=== PATIENT | female | born 1990 | race Caucasian/White ===

== ENCOUNTER 2017-06-27 09:22 | Emergency (ER) | payer SELFPAY ==
[2017-06-27 09:44] LABS: Bilirubin Negative (Negative); Blood, Urine Trace (Negative); Clarity Slightly Cloudy (Clear); Glucose, Urine (Dipstick) Negative (Negative); Leukocyte Small (Negative); Nitrite Positive (Negative); Protein, Urine (Dipstick) 30 mg/dL (Neg-Trace)
[2017-06-27 09:45] LABS: Pregnancy Test - Urine (BHCG) Negative (Negative); Pregu Control Background? CLEAR/WHITE (CLR/WHITE); Pregu Control Bar Appear? YES (CONTROL BAR); Specific Gravity 1.024 (1.002-1.036)
[2017-06-27 09:46] LABS: Specific Gravity, Urine 1.024 (1.002-1.036)
[2017-06-27 09:55] LABS: Bacteria/HPF 3+ HPF (None Seen); RBC/HPF 0-3 HPF (0-3); Squamous Epithelial 0-3 HPF (0-3)
[2017-06-27] MEDS ORDERED: Ketorolac Tromethamine 30 MG/ML VIAL ONE (10:11)
[2017-06-27] MEDS ORDERED: Phenazopyridine HCl 97.5 MG TABLET ONE (10:11)
[2017-06-27] MEDS ORDERED: cefTRIAXone\\ROCEPHIN 1 GM VIAL ONE (10:24)
[2017-06-27 10:25] LABS: ALT (SGPT) 13 U/L (8-55); AST (SGOT) 7 U/L (5-34); Albumin 4.2 g/dL (3.5-5.0); Alkaline Phosphatase 51 U/L (40-150); Anion Gap 14 mmol/L (10-20); BUN (Urea Nitrogen) 10 mg/dL (7.0-18.7); Bilirubin, Total 0.3 mg/dL (0.2-1.2); Calc. Creatinine Clearance 0 mL/min (70-130); Calcium 9.2 mg/dL (7.8-10.44); Carbon Dioxide 23 mmol/L (22-29); Chloride 105 mmol/L (98-107); Estimated GFR-MDRD Greater than 90; Globulin 3.1 g/dL (2.4-3.5); Glucose 84 mg/dL (70-105); Potassium 3.8 mmol/L (3.5-5.1); Protein, Total 7.3 g/dL (6.0-8.3); Sodium 138 mmol/L (136-145)
[2017-06-27] MEDS ORDERED: Lidocaine 1% PF 5 ML VIAL ONE (10:25)
[2017-06-27 10:27] LABS: #Basophils 0.1 thou/uL (0.0-0.2); #Eosinphils 0.1 thou/uL (0.0-0.7); #Lymphocytes 0.8 thou/uL (1.20-3.40); #Monocytes 0.5 thou/uL (0.11-0.59); #Neutrophils 5.5 thou/uL (1.40-6.50); %Basophils 1.1 % (0.0-1.0); %Eosinophils 1.7 % (0.0-10.0); %Lymphocytes 11.4 % (21.0-51.0); %Monocytes 7.5 % (0.0-10.0); %Neutrophils 78.3 % (42.0-75.0); Hemoglobin 13.3 g/dL (12.0-16.0); Mean Corpuscular HGB CONC 34.9 g/dL (32.0-36.0); Mean Corpuscular Hemoglobin 29.6 pg (27.0-31.0); Mean Corpuscular Volume 84.7 fl (81.0-99.0); Mean Platelet Volume 6.3 fL (7.4-10.4); Platelet Count 261 thou/uL (130-400); Red Blood Cell (RBC) Count 4.49 mill/uL (4.20-5.40); White Blood Cell (WBC) Count 7.1 thou/uL (4.8-10.8)
== END 2017-06-27 10:55 | disposition home or self-care (01) ==
LOC: SCSER 09:22
DX: N39.0 Urinary tract infection, site not specified (principal); F41.9 Anxiety disorder, unspecified; F31.9 Bipolar disorder, unspecified; F17.210 Nicotine dependence, cigarettes, uncomplicated; Z79.899 Other long term (current) drug therapy
CPT/HCPCS: 80053; 81003; 81015; 81025; 85025; 87077; 87086; 87186; 96372; J0696; J1885; J2001

== ENCOUNTER 2017-06-28 11:56 | Emergency (ER) | payer SELFPAY ==
[2017-06-28 12:34] LABS: Bilirubin Negative (Negative); Blood, Urine Large (Negative); Clarity TURBID (Clear); Glucose, Urine (Dipstick) Negative (Negative); Leukocyte Moderate (Negative); Nitrite Negative (Negative); Protein, Urine (Dipstick) 100 mg/dL (Neg-Trace); Specific Gravity, Urine 1.031 (1.002-1.036)
[2017-06-28 12:37] LABS: Bacteria/HPF None Seen HPF (None Seen)
[2017-06-28 12:38] LABS: Pregnancy Test - Urine (BHCG) Negative (Negative); Pregu Control Background? CLEAR/WHITE (CLR/WHITE); Pregu Control Bar Appear? YES (CONTROL BAR); Specific Gravity 1.031 (1.002-1.036); Yeast-AUWi Flag 184.1 (0-25.0)
[2017-06-28 12:54] LABS: Hyaline Casts/LPF 0-3 HYALINE CAST LPF (0-3 Hyaline); RBC/HPF GREATER THAN 50-TNTC HPF (0-3); Yeast-All Forms None Seen HPF (None Seen)
[2017-06-28] MEDS ORDERED: cefTRIAXone\\ROCEPHIN 2 GM VIAL ONE (12:56)
[2017-06-28 13:04] LABS: #Eosinphils 0.1 thou/uL (0.0-0.7); #Lymphocytes 1.4 thou/uL (1.20-3.40); #Monocytes 0.7 thou/uL (0.11-0.59); #Neutrophils 5.3 thou/uL (1.40-6.50); %Basophils 0.2 % (0.0-1.0); %Eosinophils 1.8 % (0.0-10.0); %Monocytes 9.5 % (0.0-10.0); %Neutrophils 69.5 % (42.0-75.0); Hemoglobin 12.8 g/dL (12.0-16.0); Mean Corpuscular HGB CONC 33.4 g/dL (32.0-36.0); Mean Corpuscular Hemoglobin 29.4 pg (27.0-31.0); Mean Corpuscular Volume 88.1 fl (81.0-99.0); Mean Platelet Volume 7.6 fL (7.4-10.4); Platelet Count 234 thou/uL (130-400); RBC Distribution Width 12.6 % (11.5-14.5); Red Blood Cell (RBC) Count 4.35 mill/uL (4.20-5.40); White Blood Cell (WBC) Count 7.6 thou/uL (4.8-10.8)
[2017-06-28 13:33] LABS: ALT (SGPT) 11 U/L (8-55); AST (SGOT) 14 U/L (5-34); Albumin 3.7 g/dL (3.5-5.0); Alkaline Phosphatase 53 U/L (40-150); Anion Gap 13 mmol/L (10-20); BUN (Urea Nitrogen) 10 mg/dL (7.0-18.7); Bilirubin, Total 0.2 mg/dL (0.2-1.2); Calc. Creatinine Clearance 0 mL/min (70-130); Carbon Dioxide 22 mmol/L (22-29); Chloride 105 mmol/L (98-107); Estimated GFR-MDRD Greater than 90; Globulin 3.5 g/dL (2.4-3.5); Glucose 106 mg/dL (70-105); Potassium 4.6 mmol/L (3.5-5.1); Protein, Total 7.2 g/dL (6.0-8.3); Sodium 135 mmol/L (136-145)
[2017-06-28] MEDS ORDERED: Ketorolac Tromethamine 30 MG/ML VIAL ONE (14:19)
== END 2017-06-28 15:03 | disposition home or self-care (01) ==
LOC: ERS 11:56
DX: N12 Tubulo-interstitial nephritis, not specified as acute or chronic (principal); F41.9 Anxiety disorder, unspecified; F31.9 Bipolar disorder, unspecified; F17.210 Nicotine dependence, cigarettes, uncomplicated; Z79.899 Other long term (current) drug therapy
CPT/HCPCS: 36415; 80053; 81003; 81015; 81025; 85025; 87081; 87430; 96365; 96375; J0696; J1885

== ENCOUNTER 2017-06-30 18:51 | Emergency (ER) | payer SELFPAY ==
[~2017-06-30 18:51] MED LIST: ISOVUE-370 76%-LOCM 1 ML ONE
[2017-06-30 19:36] LABS: #Eosinphils 0.1 thou/uL (0.0-0.7); #Lymphocytes 1.7 thou/uL (1.20-3.40); #Monocytes 0.9 thou/uL (0.11-0.59); #Neutrophils 6.3 thou/uL (1.40-6.50); %Eosinophils 1.3 % (0.0-10.0); %Lymphocytes 18.5 % (21.0-51.0); %Monocytes 9.8 % (0.0-10.0); %Neutrophils 70.5 % (42.0-75.0); Hemoglobin 13.2 g/dL (12.0-16.0); Mean Corpuscular HGB CONC 33.9 g/dL (32.0-36.0); Mean Corpuscular Hemoglobin 29.5 pg (27.0-31.0); Mean Corpuscular Volume 86.9 fl (81.0-99.0); Mean Platelet Volume 8.3 fL (7.4-10.4); Platelet Count 193 thou/uL (130-400); RBC Distribution Width 12.6 % (11.5-14.5); Red Blood Cell (RBC) Count 4.48 mill/uL (4.20-5.40); White Blood Cell (WBC) Count 8.9 thou/uL (4.8-10.8)
[2017-06-30 19:55] LABS: ALT (SGPT) 15 U/L (8-55); AST (SGOT) 16 U/L (5-34); Albumin 3.6 g/dL (3.5-5.0); Alkaline Phosphatase 60 U/L (40-150); Anion Gap 13 mmol/L (10-20); BUN (Urea Nitrogen) 10 mg/dL (7.0-18.7); Bilirubin, Total 0.2 mg/dL (0.2-1.2); Calc. Creatinine Clearance 0 mL/min (70-130); Calcium 9.4 mg/dL (7.8-10.44); Carbon Dioxide 24 mmol/L (22-29); Chloride 104 mmol/L (98-107); Estimated GFR-MDRD Greater than 90; Glucose 95 mg/dL (70-105); Potassium 4.5 mmol/L (3.5-5.1); Protein, Total 7.6 g/dL (6.0-8.3); Sodium 136 mmol/L (136-145)
[2017-06-30] MEDS ORDERED: diphenhydrAMINE 50 MG/ML VIAL ONE (20:29)
[2017-06-30] MEDS ORDERED: Famotidine 20 MG TAB ONE (20:29)
[2017-06-30] MEDS ORDERED: Ketorolac Tromethamine 30 MG/ML VIAL ONE (20:29)
[2017-06-30] MEDS ORDERED: methylPREDNISolone Sod Succ/PF 125 MG/2 ML VIAL ONE (20:29)
[2017-06-30] MEDS ORDERED: Water For Inject, Bacteriostat 30 ML ONE (20:29)
[2017-06-30 21:39] LABS: Bilirubin Negative (Negative); Blood, Urine Large (Negative); Clarity TURBID (Clear); Glucose, Urine (Dipstick) Negative (Negative); Leukocyte Moderate (Negative); Nitrite Negative (Negative); Protein, Urine (Dipstick) 30 mg/dL (Neg-Trace); Specific Gravity, Urine 1.023 (1.002-1.036); pH, Urine 7.5 (5.0-9.0)
[2017-06-30 21:41] LABS: Bacteria/HPF Rare-Few HPF (None Seen); Hyaline Casts/LPF 4-6 HYALINE CAST LPF (0-3 Hyaline); Pathc Cast-AUWi Flag 1.01 (0-2.49); RBC/HPF GREATER THAN 50-TNTC HPF (0-3)
[2017-06-30 21:54] LABS: MONO NEGATIVE CONTROL ZONE White (Negative) (White); MONO POSITIVE CONTROL Pink Line (Positive) (PINK/RED); Mononucleosis NEGATIVE (NEGATIVE)
--- NOTE | 2017-06-30 22:21 | CT ---
CT OF THE SOFT TISSUES OF THE NECK WITH AND WITHOUT IV CONTRAST: 06/30/17 INDICATION: Neck pain. COMPARISON: None. FINDINGS: There is a striated appearance of the bilateral palatine tonsils consistent with tonsillitis. Parapha ryngeal fat appears maintained. There are enlarged parapharyngeal lymph nodes with largest on the lef t measuring 1.6 cm. There are multiple enlarged level IIA and level III lymph nodes within both aspec ts of the neck which are likely reactive in nature. The submandibular and parotid glands appear withi n normal limits. The thyroid gland appears within normal limits. There is some mild narrowing of the oropharyngeal airway at the level of the enlarged tonsils. The visualized paranasal sinuses are clear . The intracranial contents appear within normal limits. The visualized upper mediastinum appears wit hin normal limits. The lung apices are clear. No acute osseous abnormalities evident. No drainable fl uid collection is noted. IMPRESSION: Findings of palatine tonsillitis with reactive lymphadenopathy of the upper neck. No definite drainab le fluid collection is grossly evident. POS: H
[2017-06-30] MEDS ORDERED: Morphine 4 MG/ML VIAL ONE (23:24)
--- NOTE | 2017-07-01 00:04 | CT ---
CT OF THE ABDOMEN AND PELVIS WITHOUT CONTRAST: 06/30/17 INDICATION: History of sore throat, shortness of breath and left lower quadrant abdominal pain. FINDINGS: There is contrast within the renal collecting systems from the patient's CT soft tissues of the neck with IV contrast performed early. No obstruction is evident. There is mild amount of retained stool within the colon. Normal appendix seen in the right lower quad rant of the abdomen. Spleen, pancreas, and adrenal glands appear within normal limits on this noncont rast exam. No free fluid is evident. The visualized rectum and perirectal soft tissues are unremarkab le. No definite acute osseous abnormality is evident. IMPRESSION: 1. Contrast within the renal collecting systems from the patient's recent CT of soft tissues of the neck. This limits evaluation for renal calculi. No definite obstruction is evident. 2. Normal appendix. 3. Mild amount of retained stool within the colon. POS: [facility]
== END 2017-07-01 00:50 | disposition home or self-care (01) ==
LOC: ERS 18:51
DX: J02.9 Acute pharyngitis, unspecified (principal); F41.9 Anxiety disorder, unspecified; F31.9 Bipolar disorder, unspecified; F17.210 Nicotine dependence, cigarettes, uncomplicated
CPT/HCPCS: 36415; 70492; 74176; 80053; 81003; 81015; 83605; 85025; 86308; 87081; 87430; 96361; 96374; 96375; J1200; J1885; J2270; J2930

== ENCOUNTER 2017-07-04 14:34 | Observation (INO) | payer SELFPAY ==
[2017-07-04 17:27] LABS: Hemoglobin 14.9 g/dL (12.0-16.0); Mean Corpuscular HGB CONC 33.6 g/dL (32.0-36.0); Mean Corpuscular Hemoglobin 28.9 pg (27.0-31.0); Mean Platelet Volume 6.4 fL (7.4-10.4); Platelet Count 264 thou/uL (130-400); RBC Distribution Width 12.5 % (11.5-14.5); Red Blood Cell (RBC) Count 5.14 mill/uL (4.20-5.40); White Blood Cell (WBC) Count 10.3 thou/uL (4.8-10.8)
[2017-07-04 17:46] LABS: Band 4 % (5-11); Eosinophils 1 % (0-10); Lymphocytes 14 % (21-51); MDiff Complete? YES; Monocytes 7 % (0-10); Neutrophil 74 % (42-75); PLT Morphology Comment Appears Adequate
[2017-07-04 17:50] LABS: ALT (SGPT) 15 U/L (8-55); AST (SGOT) 9 U/L (5-34); Albumin 3.8 g/dL (3.5-5.0); Alkaline Phosphatase 69 U/L (40-150); Anion Gap 11 mmol/L (10-20); BUN (Urea Nitrogen) 16 mg/dL (7.0-18.7); Bilirubin, Total 0.3 mg/dL (0.2-1.2); Calc. Creatinine Clearance 0 mL/min (70-130); Calcium 9.7 mg/dL (7.8-10.44); Carbon Dioxide 28 mmol/L (22-29); Chloride 98 mmol/L (98-107); Estimated GFR-MDRD Greater than 90; Glucose 91 mg/dL (70-105); Lipase 15 U/L (8-78); Potassium 3.9 mmol/L (3.5-5.1); Protein, Total 7.8 g/dL (6.0-8.3); Sodium 133 mmol/L (136-145)
[2017-07-04] MEDS ORDERED: Lidocaine Viscous Sol 2% 15 ml UD Cup ONE (18:49)
[2017-07-04] MEDS ORDERED: Dexamethasone 4 mg/ml Vial ONE (18:49)
[2017-07-04] MEDS ORDERED: cefTRIAXone\\ROCEPHIN 2 GM VIAL ONE (19:59)
--- NOTE | 2017-07-04 20:12 | PDOC.FPRHP ---
- History of Present Illness Chief Complaint: throat pain, chills, dysphagia, odynophagia, ear pain History of Present Illness: 27 yo F presents for cc of throat swelling and pain for the last 3 days that has progressively worsened. She reports the symptom onset was gradual and has some associated odynophagia and dysphagia, but denies any sob or wheezing. She does report associated subjective fever and chills, although home temperature has been normal. She was recently seen in the ER for similar symptoms in addition to UTI type symptoms. At that time she had a neck ct performed that showed b/l tonsillitis and reactive adenopathy w/o concern for peritonsillar abscess. She has been to the ER approx 4 times in the past month and has been and is currently being treated for a UTI. She is currently taking keflex. In the ER there was concern for possible gc/c of oropharynx and swabs were performed in addition to vp3. She was given rocephin and azithromycin empirically in ED. She does report IV drug use with methamphetamine and her most recent use was approx 1 month ago. She is sexually active with her only . She reports a single episode of vaginal bleeding that she had initially associated with her UTI. She denies vaginal discharge, dyspareunia, vaginal bleeding (currently), and denies lesions or sores around vulva. ED Course: Rocephin, decadron and viscous lidocaine po - Allergies/Adverse Reactions Allergies Allergy/AdvReac Type Severity Reaction Status Date / Time morphine Allergy Verified 07/05/17 01:30 shellfish derived Allergy Verified 07/05/17 01:30 Sulfa (Sulfonamide Allergy Verified 07/05/17 01:30 Antibiotics) - Home Medications Medication Instructions Recorded Confirmed Type traMADol HCl [Tramadol HCl] 50 mg PO Q6HR 07/05/17 07/05/17 History Clindamycin [Cleocin] 300 mg PO Q6HR #28 cap 07/06/17 Rx Ibuprofen [Motrin] 800 mg PO Q8H PRN #30 tab 07/06/17 Rx Phenol [Chloraseptic [place]] 0 ml PO PRN PRN bot 07/06/17 Rx - History PMHx: Recurrent UTI, IV drug use PSHx: None FHx: NA Social: 1/2ppd smoking history, methamphetamine IV and inh drug abuse, non- drinker - Review of Systems General: reports: fever/chills. denies: weight/appetite/sleep changes, fatigue Eyes: denies: eye pain ENT: reports: other (sore throat, dysphagia, odynophagia, b/l ear pain, tender cervical adenopathy). denies: nasal congestion, rhinorrhea Respiratory: denies: cough, congestion, shortness of breath Cardiovascular: denies: chest pain, palpitation, edema Gastrointestinal: denies: nausea, vomiting, diarrhea, constipation, abdominal pain Genitourinary: denies: incontinence, dysuria, polyuria, discharge Skin: denies: rashes, lesions Musculoskeletal: reports: arthritis/arthralgias. denies: pain, swelling Neurological: denies: numbness, weakness - Vital signs BP: 117/83 HR: 115 RR: 16 Tmax: 98.4 Pox: 96% on RA Wt: 90Kg - Physical Exam Constitutional: awake, alert and oriented, other (mildly distressed) HEENT: normocephalic and atraumatic, PERRLA, conjunctiva clear, grossly normal vision, grossly normal hearing, MMM, other (Lt TM erythematous and cloudy, Rt TM erythematous w/ evidence of tympanosclerosis, Tonsillar enlargement and purulent exudates b/l with tender cervical adenopathy) Neck: supple, trachea midline, no JVD, no thyromegaly, other (cervical adenopathy b/l) Chest: no-tender to palpation Heart: RRR, normal S1/S2, no murmurs/rubs/gallops, pulses present, no edema Lungs: CTAB, no respiratory distress, good air movement, no rales/rhonchi, no wheezing, no retractions Abdomen: soft, non-tender, bowel sounds present, no masses/distention Musculoskeletal: normal structure, normal tone, ROM grossly normal Neurological: no focal deficit Skin: no rash/lesions, capillary refill <2 seconds Heme/Lymphatic: no unusual bruising or bleeding, no petechia FMR H&P: Results - Labs Result Diagrams: 07/06/17 03:21 07/06/17 03:21 Lab results: WBC 10.3 thou/uL (4.8-10.8) 07/04/17 17:18 Hgb 14.9 g/dL (12.0-16.0) 07/04/17 17:18 Hct 44.2 % (36.0-47.0) 07/04/17 17:18 MCV 86.0 fl (81.0-99.0) 07/04/17 17:18 Plt Count 264 thou/uL (130-400) 07/04/17 17:18 Band Neuts % (Manual) 4 % (5-11) L 07/04/17 17:18 Sodium 133 mmol/L (136-145) L 07/04/17 17:18 Potassium 3.9 mmol/L (3.5-5.1) 07/04/17 17:18 Chloride 98 mmol/L (98-107) 07/04/17 17:18 Carbon Dioxide 28 mmol/L (22-29) 07/04/17 17:18 BUN 16 mg/dL (7.0-18.7) 07/04/17 17:18 Creatinine 0.64 mg/dL (0.6-1.1) 07/04/17 17:18 Glucose 91 mg/dL (70-105) 07/04/17 17:18 Calcium 9.7 mg/dL (7.8-10.44) 07/04/17 17:18 Total Bilirubin 0.3 mg/dL (0.2-1.2) 07/04/17 17:18 AST 9 U/L (5-34) 07/04/17 17:18 ALT 15 U/L (8-55) 07/04/17 17:18 Alkaline Phosphatase 69 U/L (40-150) 07/04/17 17:18 Serum Total Protein 7.8 g/dL (6.0-8.3) 07/04/17 17:18 Albumin 3.8 g/dL (3.5-5.0) 07/04/17 17:18 Lipase 15 U/L (8-78) 07/04/17 17:18 FMR H&P: A/P - Problem List (1) Tonsillitis with exudate Status: Acute Code(s): J03.90 - ACUTE TONSILLITIS, UNSPECIFIED (2) Bacterial vaginosis Status: Acute Code(s): N76.0 - ACUTE VAGINITIS; B96.89 - OTH BACTERIAL AGENTS THE CAUSE OF DISEASES CLASSD ELSWHR (3) Trichomoniasis Status: Acute (4) Drug abuse Status: Acute Code(s): F19.10 - OTHER PSYCHOACTIVE SUBSTANCE ABUSE, UNCOMPLICATED (5) Tobacco abuse Status: Acute Code(s): Z72.0 - TOBACCO USE - Plan 1) Tonsillitis: given worsening of s/s will treat empirically with iv clindamycin and culture throat for concern of early peritonsillar abscess. Recent rapid strep tests and cultures have been negative thus far. Currently pt shows no s/s of peritonsillar abscess or respiratory compromise. She was given decadron in ED in addition to rocephin and azithromyci. GC/C vaginal swab is pending. Cont IVF NS @ maintenance. 2) Drug abuse: reports most recent use of one month ago, will check UDS. 3) Trich: IV flagyl 2grams one time dose. Vaginal gc/c pending 4) BV: IV flagyl 2grams one time dose. Vag gc/c pending 5) PPX: scds and tums prn for dvt and GI ppx, respectively 6) Code status: pt full code FMR H&P: Upper Level - Pertinent history 27 yo CF with PMHx IV drug use presented to ED for continued throat pain. Pt has been seen in ED 4 times in last 8 days. She has been adequately treated for e. coli UTI with Cipro. Was also given Augmentin and Keflex (did not fill Keflex ). Pt no longer complains of urinary symptoms but has persistent sore throat with swollen tonsils and painful swallowing. Has mild pain with opening mouth and speaking is painful. Denies fever/chills. No N/V/D. Denies cough. C/o pressure in both ears. Of note, she has hx of IV methamphetamine abuse with last use 1 month ago. She is a chronic smoker but stopped recently due to throat pain. Endorses passage of small blood clots last week that has now resolved. Monogamous relationship for at least 1 yr. - Pertinent findings Gen: NAD, in pain with speech HEENT: R TM tympanosclerosis on inferior TM, no erythema, 2 small air bubbles inferiorly; 3+ bilateral tonsillar enlargement R > L with bilateral exudates; bilateral cervical adenopathy CV: RRR, no m/r/g Lungs: CTAB, no increased WOB Abd: NT/ND - Plan Date/Time: 07/04/172011 1. Tonsillitis vs early peritonsillar abscess. Pt has worsened while on oral augmentin. CT neck on 06/30 showed tonsillitis with reactive adenopathy. No new imaging but clinically pt appears to have worsened. Exam does not support peritonsillar abscess at this time although could be in early stages. Treat with IV abx for 24 hrs and monitor for improvement. IV clindamycin as MRSA risk higher due to IVDU. Steroids given and will continue. Throat culture performed. Strep screen and cultures neg x2 in last week. Monospot neg. Observation overnight especially due to worsening tonsillar swelling in order to ensure protected airway. 2. UTI, resolved. Adequately treated with 1 wk of Cipro. E coli susceptible from 06/27. 3. Trichomonas. Treated with one time dose of flagyl. Likely explains recent vaginal symptoms. Discuss in AM. 4. Hx IV drug use. Check drug screen. Denies use in last month. 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 5. Bacterial vaginosis. IV flagyl x1 (unable to tolerate much PO at this time). I, Timi Roberts, have evaluated this patient and agree with findings/plan as outlined by recording studio intern resident. Pertinent changes/additions are listed here. Attending Addendum - Attending Addendum Date/Time: 07/04/17 [id number] I personally evaluated the patient and discussed the management with Dr. Gipson I agree with the History, Examination, Assessment and Plan documented above with any addition or exceptions noted below- Briefly this is a 27 yo CF with PMHx IV drug use presented to ED for continued throat pain. Pt has been seen in ED 4 times in last 8 days for sore throat and hematuria. She has been adequately treated for e. coli UTI with Cipro. Was also given Augmentin and Keflex (did not fill Keflex). Pt no longer complains of urinary symptoms but has persistent sore throat with swollen tonsils and painful swallowing. Has mild pain with opening mouth and speaking is painful. Denies fever/chills. No N/ V/D. Denies cough. C/o pressure in both ears. Of note, she has hx of IV methamphetamine abuse with last use 1 month ago. She is a chronic smoker but stopped recently due to throat pain. PMH/PSH/ALl/Meds/SH reviewed and agree with resident's docuemtnation. T 98.2 P95 RR 20 BP 125/81 Exam repeated by me significant for 3+ tonsils with exudate. Lungs- CTA b/l; CV- RRR, no murmur A /P: Tonsillitis- Place in obs; will treat for possible early tonsillar/ peritonsillar abscess; strarted on clindamycin. 2) UTI- completed course of cipro; continue to monitor.
[2017-07-04 21:18] VITALS: BMI 31.9
[2017-07-04] MEDS ORDERED: Ondansetron HCl/PF 4 MG/2 ML Vial IVP PRN (21:41)
[2017-07-04] MEDS ORDERED: Ondansetron ODT 4 MG TAB PO PRN (21:41)
[2017-07-04] MEDS ORDERED: Acetaminophen 325 MG TAB PO PRN (21:41)
[2017-07-04] MEDS ORDERED: Calcium Carbonate 500 MG ChewTAB PO PRN (21:41)
[2017-07-04] MEDS ORDERED: METRONIDAZOLE IVPB SCH ×2 (21:45→22:15)
[2017-07-04] MEDS ORDERED: ADMIXTURE FEE IVPB SCH (22:15)
[2017-07-04] MEDS: Sodium Chloride 0.9% 1,000 ML IV SCH (22:46)
[2017-07-04] MEDS: Ibuprofen 600 MG TAB PO PRN (22:59)
[2017-07-05] MEDS ORDERED: Chloraseptic Spray 180 ml Bottle PO PRN ×2 (01:13→02:04)
[2017-07-05] MEDS ORDERED: Lidocaine Viscous Sol 2% 15 ml UD Cup SSW SCH ×2 (01:15→03:00)
[2017-07-05 04:34] LABS: Anion Gap 12 mmol/L (10-20); BUN (Urea Nitrogen) 12 mg/dL (7.0-18.7); Calc. Creatinine Clearance 192 mL/min (70-130); Calcium 9.4 mg/dL (7.8-10.44); Carbon Dioxide 26 mmol/L (22-29); Chloride 102 mmol/L (98-107); Estimated GFR-MDRD Greater than 90; Glucose 138 mg/dL (70-105); Potassium 4.4 mmol/L (3.5-5.1); Sodium 136 mmol/L (136-145)
[2017-07-05 04:40] LABS: Hemoglobin 14.2 g/dL (12.0-16.0); Mean Corpuscular HGB CONC 33.9 g/dL (32.0-36.0); Mean Corpuscular Hemoglobin 29.1 pg (27.0-31.0); Mean Corpuscular Volume 85.9 fl (81.0-99.0); Mean Platelet Volume 6.4 fL (7.4-10.4); Platelet Count 303 thou/uL (130-400); RBC Distribution Width 12.5 % (11.5-14.5); Red Blood Cell (RBC) Count 4.88 mill/uL (4.20-5.40)
[2017-07-05 04:41] LABS: Band 10 % (5-11); Lymphocytes 26 % (21-51); MDiff Complete? YES; Monocytes 5 % (0-10); Neutrophil 59 % (42-75)
[2017-07-05] MEDS: Clindamycin/D5W 600 MG in Premix Bag 1 BAG IVPB SCH ×4 (05:29→23:46)
[2017-07-05] MEDS: Sodium Chloride 0.9% 1,000 ML IV SCH ×3 (06:24→20:17)
--- NOTE | 2017-07-05 08:36 | PDOC.FM ---
- Subjective Subjective: Sara Chau seen at bedside this morning. Still complains of throat pain but she was able to tolerate PO fluids this morning. She denies any fever, chills, chest pain, difficulty breathing, n/v. - Objective MAR Reviewed: Yes Vital Signs & Weight: Vital Signs (12 hours) Temp Pulse Resp BP Pulse Ox 07/05/17 06:56 98.1 F 79 18 108/72 94 L 07/05/17 04:00 97.8 F 64 20 95/59 L 95 07/05/17 00:00 98.2 F 95 20 125/81 95 07/04/17 21:30 98.2 F 95 20 07/04/17 21:06 99.5 F 102 H 18 107/66 97 Weight Weight 89.811 kg Result Diagrams: 07/05/17 03:22 07/05/17 03:22 Phys Exam - Physical Examination Constitutional: NAD HEENT: moist MMs, sclera anicteric tonsillar exudates Neck: no JVD, supple, full ROM Respiratory: no wheezing, no rales, no rhonchi, clear to auscultation bilateral Cardiovascular: RRR, no significant murmur Gastrointestinal: soft, non-tender, no distention Musculoskeletal: no edema, pulses present Neurological: non-focal, normal sensation, moves all 4 limbs Psychiatric: normal affect, A&O x 3 Skin: no rash, normal turgor Dx/Plan (1) Bacterial vaginosis Code(s): N76.0 - ACUTE VAGINITIS; B96.89 - OTH BACTERIAL AGENTS THE CAUSE OF DISEASES CLASSD ELSWHR Status: Acute (2) Drug abuse Code(s): F19.10 - OTHER PSYCHOACTIVE SUBSTANCE ABUSE, UNCOMPLICATED Status: Acute (3) Tobacco abuse Code(s): Z72.0 - TOBACCO USE Status: Acute (4) Tonsillitis with exudate Code(s): J03.90 - ACUTE TONSILLITIS, UNSPECIFIED Status: Acute (5) Trichomoniasis Status: Acute - Plan Plan: 1) Tonsillitis - IV Clindamycin due to worsening sore throat that failed OP therapy and concern for early peritonsillar abscess - Recent rapid strep tests and cultures have been negative thus far. - Currently pt shows no s/s of peritonsillar abscess or respiratory compromise. - Given decadron in ED in addition to rocephin and azithromycin. GC/C vaginal swab is pending. Cont IVF NS @ maintenance. 2) Drug abuse: reports most recent use of one month ago, will check UDS. 3) Trich: IV flagyl 2grams one time dose. Vaginal gc/c pending 4) BV: IV flagyl 2grams one time dose. Vag gc/c pending 5) PPX: scds and tums prn for dvt and GI ppx, respectively 6) Code status: pt full code
[2017-07-05] MEDS: Dexamethasone 10 MG in Sodium Chloride 0.9% 50 ML IVPB SCH (09:14)
[2017-07-05] MEDS: Ibuprofen 600 MG TAB PO PRN ×2 (10:28→21:36)
[2017-07-05 11:12] LABS: Amphetamine Detected (NotDetected); Barbiturates Screen Not Detected (NotDetected); Benzodiazepine Screen Not Detected (NotDetected); Cocaine Metabolite Screen Not Detected (NotDetected); Medtox Control Line Valid? VALID (VALID); Medtox Reader # READER 1; Methadone Not Detected (NotDetected); Methamphetamine Detected (NotDetected); Opiate Screen Not Detected (NotDetected); Oxycodone Screen Not Detected (NotDetected); Phencyclidine (PCP) Not Detected (NotDetected); THC/Cannabinoid Screen Not Detected (NotDetected); Tricyclic Screen Not Detected (NotDetected)
[2017-07-05 12:45] LABS: Syphilis Antibody Nonreactive (Nonreactive); Syphilis Antibody Index 0.07 S/CO (<1.00 Non-Reactive)
[2017-07-05 12:46] LABS: HIV (1/2) Antibody/Antigen Non-Reactive (NonReactive); HIV 1/2 INDEX 0.08 S/CO (<1.00); Hep B Surf AB Non-Reactive (NonReactive); Hep C IgG Ab Non-Reactive (NonReactive); Hep C Index 0.12 S/CO (0-0.79)
--- NOTE | 2017-07-05 14:15 | ADD-PRG ---
DATE OF SERVICE: 07/05/2017 Please add this as an addendum to the note of Dr. Maninder Card. Ms. Chau is a 27-year-old lady, who was admitted with an exudative pharyngitis. On a previous ER vi sit, she had a CT of the neck that did not demonstrate a peritonsillar abscess. On exam, she still h as a significant exudative pharyngitis, but no physical exam evidence of a peritonsillar abscess. Shaka pineda is currently on intravenous Cleocin, which I believe is a good choice. She has a history of intrav enous drug abuse and I have suggested we also check her for HIV, syphilis, hepatitis B, and hepatitis C. Otherwise, continue IV fluids and IV antibiotics.
[2017-07-06 04:40] LABS: #Monocytes 1.3 thou/uL (0.11-0.59); #Neutrophils 7.9 thou/uL (1.40-6.50); %Eosinophils 0.4 % (0.0-10.0); %Lymphocytes 24.2 % (21.0-51.0); %Monocytes 10.7 % (0.0-10.0); %Neutrophils 64.7 % (42.0-75.0); Hemoglobin 12.4 g/dL (12.0-16.0); Mean Corpuscular HGB CONC 34.7 g/dL (32.0-36.0); Mean Corpuscular Hemoglobin 29.9 pg (27.0-31.0); Mean Corpuscular Volume 86.1 fl (81.0-99.0); Mean Platelet Volume 6.3 fL (7.4-10.4); Platelet Count 346 thou/uL (130-400); RBC Distribution Width 12.3 % (11.5-14.5); Red Blood Cell (RBC) Count 4.14 mill/uL (4.20-5.40); White Blood Cell (WBC) Count 12.2 thou/uL (4.8-10.8)
[2017-07-06 04:49] LABS: Anion Gap 8 mmol/L (10-20); BUN (Urea Nitrogen) 13 mg/dL (7.0-18.7); Calc. Creatinine Clearance 201 mL/min (70-130); Calcium 8.7 mg/dL (7.8-10.44); Carbon Dioxide 25 mmol/L (22-29); Chloride 108 mmol/L (98-107); Estimated GFR-MDRD Greater than 90; Glucose 98 mg/dL (70-105); Potassium 3.9 mmol/L (3.5-5.1); Sodium 137 mmol/L (136-145)
[2017-07-06] MEDS: Sodium Chloride 0.9% 1,000 ML IV SCH (06:07)
[2017-07-06] MEDS: Clindamycin/D5W 600 MG in Premix Bag 1 BAG IVPB SCH ×2 (06:08→11:59)
--- NOTE | 2017-07-06 06:16 | PDOC.FM ---
- Subjective Subjective: Sara Chau seen at bedside this morning. She is feeling a little better today. There were no acute events overnight. She denies any fever, chills, chest pain, difficulty breathing, cough. - Objective MAR Reviewed: Yes Vital Signs & Weight: Vital Signs (12 hours) Temp Pulse Resp BP Pulse Ox 07/06/17 02:56 96 07/06/17 00:00 98.6 F 82 20 105/70 07/05/17 20:00 98.5 F 84 20 101/62 96 Weight Admit Weight 89.811 kg Weight 89.811 kg I&O: 07/04/17 07/05/17 07/06/17 06:59 06:59 06:59 Intake Total 50 Balance 50 Result Diagrams: 07/06/17 03:21 07/06/17 03:21 Phys Exam - Physical Examination Constitutional: NAD HEENT: moist MMs, sclera anicteric erythematous tonsils with exudates Neck: no JVD, supple, full ROM Respiratory: no wheezing, no rales, no rhonchi, clear to auscultation bilateral Cardiovascular: RRR, no significant murmur Gastrointestinal: soft, non-tender, no distention Musculoskeletal: no edema, pulses present Neurological: non-focal, normal sensation, moves all 4 limbs Psychiatric: normal affect, A&O x 3 Skin: no rash, normal turgor Dx/Plan (1) Bacterial vaginosis Code(s): N76.0 - ACUTE VAGINITIS; B96.89 - OTH BACTERIAL AGENTS THE CAUSE OF DISEASES CLASSD ELSWHR Status: Acute (2) Drug abuse Code(s): F19.10 - OTHER PSYCHOACTIVE SUBSTANCE ABUSE, UNCOMPLICATED Status: Acute (3) Tobacco abuse Code(s): Z72.0 - TOBACCO USE Status: Acute (4) Tonsillitis with exudate Code(s): J03.90 - ACUTE TONSILLITIS, UNSPECIFIED Status: Acute (5) Trichomoniasis Status: Acute - Plan Plan: 1) Tonsillitis - IV Clindamycin due to worsening sore throat that failed OP therapy and concern for early peritonsillar abscess - Recent rapid strep tests and cultures have been negative thus far. - Currently pt shows no s/s of peritonsillar abscess or respiratory compromise. - Given decadron in ED in addition to rocephin and azithromycin. GC/C vaginal swab is pending. Cont IVF NS @ maintenance. - Continue IV clindamycin today, poss discharge today with PO clinda 2) Drug abuse: - reports most recent use of one month ago - UDS positive for meth - HIV, Hep B, and RPR negative 3) Trich: - IV flagyl 2grams one time dose. Vaginal gc/c pending 4) BV: - IV flagyl 2grams one time dose. Vag gc/c pending
[2017-07-06 08:06] VITALS: BP 111/74; TEMP 98.1
[2017-07-06] MEDS: Dexamethasone 10 MG in Sodium Chloride 0.9% 50 ML IVPB SCH (09:01)
[2017-07-06] MEDS: Ibuprofen 600 MG TAB PO PRN (09:49)
[2017-07-06] MEDS ORDERED: Recombivax (HEP-B) 5 MCG/0.5 ML VIAL IM ONE (12:35)
[2017-07-06] MEDS ORDERED: Hepatitis B Vaccine 10 MCG/0.5 ML SYR IM ONE (12:45)
--- NOTE | 2017-07-06 14:25 | ADD-PRG ---
DATE OF SERVICE: 07/06/2017 ADDENDUM: This is an addendum to the note of Dr. Maninder Card. Ms. Chau looks and feels much better this morn ing. She remains afebrile. Her throat still shows an exudative tonsillitis, but the swelling seems to be reduced. She was given instructions on eating things like popsicles and ice cream for the next day or two to remain hydrated. Also given instructions and salt water gargles. She will be dischar ged to complete p.o. Cleocin at home.
--- NOTE | 2017-07-06 21:45 | DIS-2 ---
DATE OF ADMISSION: 07/04/2017 DATE OF DISCHARGE: 07/06/2017 RESIDENT: Maninder Card MD ADMITTING ATTENDING: Rosa Elena Horner MD DISCHARGE ATTENDING: Salvador Schreiber MD CONSULTATIONS: None. PROCEDURES: None. PRIMARY DIAGNOSES: 1. Tonsillitis with exudate, concern for peritonsillar abscess. 2. Bacterial vaginosis. 3. Trichomoniasis. 4. Drug abuse. 5. Tobacco abuse. DISCHARGE MEDICATIONS: Resume home meds including tramadol 50 mg p.o. q.6 hours p.r.n. New home medications: 1. Clindamycin 300 mg p.o. q.6 hours for 7 days. 2. Ibuprofen 800 mg p.o. q.8 hours p.r.n. 3. Chloraseptic spray p.r.n. HISTORY OF PRESENT ILLNESS AND HOSPITAL COURSE: Sara Chau is a 27-year-old female with a histor y of drug abuse and alcohol abuse, who presented to the ED with chief complaint of throat swelling an d pain for the last 3 days, but has progressively worsened. She had been to the ER for 3 days in a r ow and had been prescribed 3 different antibiotics and she says her symptoms are worsening. It is as sociated with odynophagia and dysphagia, but she denies any shortness of breath or wheezing. She als o reports subjective fevers and chills, although home temperature has been normal. She said that she was recently seen in the ER for similar symptoms in addition to UTI-like symptoms. At that time, e had a neck CT performed and showed bilateral tonsillitis and reactive adenopathy without concern fo r peritonsillar abscess. She has been to the ER approximately 4 times in the past month and she is c urrently being treated for her UTI. She was taking Keflex in the ER. There was concern for gonorrhe a and chlamydia of the oropharynx and swabs were performed in addition to a VPIII. She was given Jacques ephin and azithromycin empirically in the ED. She also reported IV drug use with methamphetamines an d most recent use was 1 month ago. She is sexually active with her . She only reports a sing le episode of vaginal bleeding that initially was associated with her UTI. She denies any vaginal di scharge, pain with intercourse, vaginal bleeding, lesions, or sores. She was admitted for tonsilliti s with exudates and some concern for peritonsillar abscess. She was started on IV clindamycin. Thro at cultures were done. Rapid Strep test and cultures have been negative so far. There are no signs or symptoms of respiratory compromise. She was given IV maintenance fluids due to decreased p.o. int germania. UDS was positive for methamphetamines and amphetamines. VPIII was positive for Trichomonas and bacterial vaginosis. IV Flagyl 2 grams was given, one-time dose. Vaginal gonorrhea and chlamydia t ests are still pending. The patient had an uneventful hospital stay. Her symptoms began to improve as hospital admission progressed, although she was still having some pain. Syphilis, hepatitis B, an d HIV were negative. The patient will be notified of throat cultures. The patient was cleared for d ischarge on 07/06/2017 with instructions to continue taking antibiotics and follow up with her primar y care provider. The patient understood the plan and was in agreement. DISPOSITION: Stable. The patient should do well if she continues taking her antibiotics and follows up with a primary care provider for re-evaluation. There is no concern for peritonsillar abscess at this time. DISCHARGE INSTRUCTIONS: 1. Location: Home. 2. Diet: No restrictions. 3. Activity: As tolerated. 4. Follow up with primary care provider within a week.
[2017-07-06 23:07] LABS: Chlamydia by PCR Not Detected (NotDetected); GC by PCR Not Detected (NotDetected)
== END 2017-07-06 13:30 | disposition home or self-care (01) ==
LOC: ERS 14:34 → T4-A 18:58
PROVIDERS: ADMIT Family Medicine; ATTEND Family Medicine
DX: J03.90 Acute tonsillitis, unspecified (principal); N76.0 Acute vaginitis; A59.9 Trichomoniasis, unspecified; F17.210 Nicotine dependence, cigarettes, uncomplicated; F15.10 Other stimulant abuse, uncomplicated; F18.10 Inhalant abuse, uncomplicated; Z79.2 Long term (current) use of antibiotics; Z91.013 Allergy to seafood; Z88.2 Allergy status to sulfonamides; Z88.5 Allergy status to narcotic agent
CPT/HCPCS: 36415; 80048; 80053; 80306; 83690; 85025; 86706; 86780; 86803; 87070; 87389; 87480; 87491; 87510; 87591; 87660; 96361; 96365; 96366; 96367; 96375; 96376; G0378; J0696; J1100; J3490; J7050

== ENCOUNTER 2020-06-13 00:03 | Emergency (ER) | payer SELFPAY | END 2020-06-13 00:42 | disposition home or self-care (01) | LOC: ERS 00:03 | DX: H66.91 Otitis media, unspecified, right ear (principal); F17.210 Nicotine dependence, cigarettes, uncomplicated | CPT/HCPCS: 99283 ==